=== PATIENT | female | born 1975 ===

== ENCOUNTER 2016-06-05 07:43 | Day surgery (SDC) | payer BC ==
[2016-06-05] MEDS ORDERED: LIDOCAINE 1% W/EPI 1:200,000 MPF 30ML SQ ONE (13:31)
[2016-06-05] MEDS ORDERED: DEXAMETHASONE PRESERVATIVE FREE 10MG/ML VIAL IV ONE (13:31)
[2016-06-05] MEDS ORDERED: BUPIVACAINE 0.5% W/EPI MPF 30 ML VIAL IVP ONE (13:31)
--- NOTE | 2016-06-05 13:36 | Operative Note ---
PAIN SERVICE OPERATIVE REPORT DATE OF PROCEDURE: 06/05/2016. 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 PROCEDURE: Radiofrequency rhizotomy right lumbar facets 3-4, 4-5, and 5-1. SURGEON: Edin Meier D.O. ANESTHESIA: Local sedation. ANESTHESIA PROVIDER: Néstor Lamb CRNA. INDICATIONS: This patient presents with back pain. Examination shows tenderness in the lumbar spine. Range of motion does cause pain into the back with extension. Diagnostics show multilevel spondylosis. A previous facet series resulted in 75 to 85% percent pain control. Due to the failure of therapies and success of the facet series, she is here for rhizotomy. Due to the revised insurance guidelines limiting the number of levels and bilateral technique, she will have the right treated today and will return for the left. DESCRIPTION OF PROCEDURE: Intravenous line, vital sign monitoring, and IV sedation. Prepped and draped with sterile technique. Facets in the lumbar spine right at 3-4, 4-5, and 5-1 were marked and infiltrated. A 20-gauge rhizotomy cannula was positioned. Stimulation trials were conducted. Rhizotomy burn was performed. Local with anti-inflammatory into the sites. Topical antibiotic and sterile dressings were applied. Edin Meier D.O. Date Time Job Number: [id number] cc: Zoey Oviedo
[2016-06-05] MEDS ORDERED: MIDAZOLAM HCL 2MG/2ML VIAL IV ONE (15:26)
[2016-06-05] MEDS ORDERED: FENTANYL PF 100MCG/2ML VIAL IV ONE (15:26)
[2016-06-05] MEDS ORDERED: LIDOCAINE 2% MDV (20MG/ML) 20ML VIAL IV ONE (15:26)
[2016-06-05] MEDS ORDERED: PROPOFOL 10 MG/ML VIAL IV ONE (15:26)
== END 2016-06-05 09:50 | disposition home or self-care (01) ==
LOC: SUR 07:43
PROVIDERS: ATTEND Pain Medicine Interventional Pain Medicine
DX: M47.816 Spondylosis without myelopathy or radiculopathy, lumbar region (principal); E78.00 Pure hypercholesterolemia, unspecified
CPT/HCPCS: 81025; 64635; 64636 ×2; 01936; J1100; J3010

== ENCOUNTER 2016-06-19 08:31 | Day surgery (SDC) | payer BC ==
[2016-06-19] MEDS ORDERED: BUPIVACAINE 0.5% W/EPI MPF 30 ML VIAL IVP ONE (14:00)
[2016-06-19] MEDS ORDERED: DEXAMETHASONE PRESERVATIVE FREE 10MG/ML VIAL IV ONE (14:00)
[2016-06-19] MEDS ORDERED: LIDOCAINE 1% W/EPI 1:200,000 MPF 30ML SQ ONE (14:00)
[2016-06-19] MEDS ORDERED: LIDOCAINE 2% MDV (20MG/ML) 20ML VIAL IV ONE (14:58)
[2016-06-19] MEDS ORDERED: FENTANYL PF 100MCG/2ML VIAL IV ONE (14:58)
[2016-06-19] MEDS ORDERED: PROPOFOL 10 MG/ML VIAL IV ONE (14:58)
[2016-06-19] MEDS ORDERED: MIDAZOLAM HCL 2MG/2ML VIAL IV ONE (14:58)
--- NOTE | 2016-06-20 15:22 | Operative Note - [place] ---
DATE OF SURGERY: 06/19/16 PREOPERATIVE DIAGNOSIS: LUMBAR SPONDYLOSIS WITHOUT MYELOPATHY, ICD-10 CODE = M47.816. OPERATION: RADIOFREQUENCY RHIZOTOMY LEFT LUMBAR FACETS 3/4, 4/5, AND 5/ 1. SURGEON: SUZY GEORGE D.O. ANESTHESIA: LOCAL SEDATION. ANESTHESIA PROVIDER: BERNARDO BYNUM CRNA INDICATION: This patient presents with back pain. Examination shows tenderness in the lumbar spine. Range of motion does cause pain in the low back with extension. Diagnostics show a 3/4 to 5/1 spondylosis. Previous facet series 90% pain control. Due to the failure of therapy and the success of the facet series , she presents for rhizotomy. She had the previous to the right and is here for the left. PROCEDURE: Intravenous line, vital sign monitoring, IV sedation, prepped and draped in sterile technique. Under imaging, the facet levels at 3/4, 4/5, and 5/ 1 on the left were marked, infiltrated. A 20-gauge rhizotomy cannula positioned. Stimulation trials conducted. Rhizotomy burn performed. Local with anti-inflammatory into the sites. Topical antibiotics. Sterile dressing applied. We will monitor and evaluate. SUZY GEORGE D.O. Date & Time cc: Dr. Gallagher JOB NUMBER: [id number] MTDD
== END 2016-06-19 10:00 | disposition home or self-care (01) ==
LOC: SUR 08:31
PROVIDERS: ATTEND Pain Medicine Interventional Pain Medicine
DX: M47.816 Spondylosis without myelopathy or radiculopathy, lumbar region (principal); E78.00 Pure hypercholesterolemia, unspecified
CPT/HCPCS: 81025; 64635; 64636 ×2; 01936; J1100; J3010

== ENCOUNTER 2017-02-05 06:50 | Day surgery (SDC) | payer BC ==
[2017-02-05] MEDS ORDERED: LIDOCAINE 1% W/EPI 1:200,000 MPF 30ML SQ ONE (06:51)
[2017-02-05] MEDS ORDERED: DEXAMETHASONE PRESERVATIVE FREE 10MG/ML VIAL IV ONE (06:51)
[2017-02-05] MEDS ORDERED: FENTANYL PF 100MCG/2ML VIAL IV ONE (06:51)
[2017-02-05] MEDS ORDERED: MIDAZOLAM HCL 2MG/2ML VIAL IV ONE (06:51)
[2017-02-05] MEDS ORDERED: *PACU ONLY* KETAMINE HCL 10 MG/ML (20ML) VIAL IV ONE (06:51)
[2017-02-05] MEDS ORDERED: PROPOFOL 10 MG/ML VIAL IV ONE (06:51)
[2017-02-05] MEDS ORDERED: BUPIVACAINE 0.75% W/EPI MPF 30ML VIAL IVP ONE (06:51)
--- NOTE | 2017-02-05 16:31 | Operative Note - [place]ro ---
DATE OF SURGERY: 02/05/17 PREOPERATIVE DIAGNOSIS: LUMBAR SPONDYLOSIS WITHOUT MYELOPATHY, ICD-10 CODE = M47.816. OPERATION: RADIOFREQUENCY RHIZOTOMY, LEFT LUMBAR FACETS, 2-3, 3-4, 4-5, AND 5-1. SURGEON: SUZY GEORGE D.O. ANESTHESIA: LOCAL SEDATION. ANESTHESIA PROVIDER: FREEMAN POE CRNA INDICATION: This patient presents with back pain. Examination shows tenderness in the lumbar spine. Range of motion does cause pain in the low back with extension. Diagnostics show multiple levels of spondylosis. A facet series 75 to 85% pain control. Due to the failure of therapy and success of the facet series, the patient presents today for rhizotomy for more long-term relief. Due to the revised guidelines limiting the number of levels and bilateral techniques , she is here for the left and will return for the right. PROCEDURE: Intravenous line, IV sedation, prepped and draped in sterile technique. Under imaging, facets on the left 2-3, 3-4, 4-5, and 5-1 marked and infiltrated. A 20-gauge rhizotomy cannula positioned. Stimulation trials conducted. Rhizotomy burn performed. Local with anti-inflammatory into the sites. Topical antibiotics. Sterile dressing applied. We will monitor and evaluate. cc: Dr. Gallagher JOB NUMBER: [id number] [facility]
== END 2017-02-05 09:25 | disposition home or self-care (01) ==
LOC: SUR 06:50
PROVIDERS: ATTEND Pain Medicine Interventional Pain Medicine
DX: M47.816 Spondylosis without myelopathy or radiculopathy, lumbar region (principal); E78.00 Pure hypercholesterolemia, unspecified
CPT/HCPCS: 64635; 64636 ×2; 01936; 81025; J1100; J3490